=== PATIENT | male | born 1945 | race American Indian/Alaskan Native ===

== ENCOUNTER 2017-11-13 08:18 | Day surgery (SDC) | payer MEDICARE ==
[~2017-11-13 08:18] MED LIST: NACL 0.9% 1000 ML 1,000 ML IV SCH
[2017-11-13] MEDS ORDERED: DIPRIVAN 10 MG/ML IV ONE (10:46)
--- NOTE | 2017-11-13 10:47 | Short Stay Summary ---
Short Stay Documentation Date of service: 11/13/17 - History H&P: obtained from office - Allergies and Medications Current Medications: Allergies No Known Allergies Allergy (Verified 11/13/17 07:39) Home Medications Medication Instructions Recorded Confirmed Last Taken Type Megestrol 40 mg BID 11/13/17 11/13/17 Unknown History Miralax 3350 17 gm DAILY 11/13/17 11/13/17 Unknown History Mirtazapine 30 mg DAILY 11/13/17 11/13/17 Unknown History Omeprazole 40 mg DAILY 11/13/17 11/13/17 Unknown History hydrOXYzine 25 mg DAILY 11/13/17 11/13/17 Unknown History Active Medications Sodium Chloride (Nacl 0.9% 1000 Ml) 1,000 mls @ 50 mls/hr IV DIRECT LOVE Last Admin: 11/13/17 09:05 Dose: 50 mls/hr - Brief post op/procedure progress note Date of procedure: 11/13/17 Findings: see procedure notes Estimated blood loss: none Pathology: none Condition: stable - Disposition Condition at discharge: Good - Discharge Diagnoses (1) GERD (gastroesophageal reflux disease) Status: Acute (2) History of colonic polyps Status: Acute (3) Weight loss of more than 10% body weight Status: Acute Short Stay Discharge Plan Activity: other (no driving for 24 hours) Weight Bearing Status: Full Weight Bearing Diet: regular Follow up with: ELIZ PRYOR MD [Other] - 7 Days
--- NOTE | 2017-11-13 10:48 | Operative Report ---
Operative Report Operative Report: Date of procedure: 11/13/2017 Procedure: Esophagogastroduodenoscopy Preprocedure diagnosis: Chronic GERD. History of weight loss. Post procedure diagnosis: Normal study Endoscopist: Dr. Chowdary Anesthesia: Monitored anesthesia care per anesthesia department Medications: Propofol per anesthesia Estimated blood loss: 0 After careful discussion of the nature and purpose of the procedure as well as details the technique risks benefits and alternatives consent was obtained. The patient was placed in the left lateral decubitus position and medicated per anesthesia. The tip of the Movatu EQ 570 video scope was passed per orum under direct vision into the esophagus and advanced into the stomach and descending duodenum. The descending duodenum the duodenal bulb and pylorus were symmetrical and normal. The scope was withdrawn into the stomach and the stomach then gently insufflated with air. The antrum was normal. The stomach was further insufflated and the scope was then retroflexed and partially withdrawn. The cardia, fundus, and body of the stomach were within normal limits and easily distensible.The scope was then withdrawn in the forward position. The esophagogastric junction was at 40 cm. The esophageal body was normal throughout. The procedure was was well tolerated and the patient was observed in recovery. Impressions: Normal study. Plan: Continue omeprazole. Electronically signed: James Chowdary MD
--- NOTE | 2017-11-13 10:49 | Operative Report ---
Operative Report Operative Report: Date of procedure: 11/13/2017 Preprocedure diagnosis: History of adenomatous colon polyps. Recent significant weight loss. Post procedure diagnosis: Normal study Procedure: Colonoscopy to the cecum Endoscopist: Dr. Chowdary Anesthesia: Monitored anesthesia care per anesthesia department Estimated blood loss: 0 Medications: Monitored anesthesia care. See separate report by anesthesia for details. After careful discussion of the nature and purpose of the procedure as well as details of the technique risks benefits and alternatives the patient gave consent. Please see recent history and physical from the office. The patient was placed in the left lateral decubitus position and medicated per anesthesia. A rectal exam was performed sphincter tone was normal there were no masses palpable. The [employer] 570 scope was passed transanally and advanced under continuous direct vision without difficulty to the cecum. The colon was well prepared. The cecum was normal. The ascending colon was normal and on forward and retroflexed views. The transverse colon, descending colon, and sigmoid colon were normal. The rectum was normal on forward and retroflexed views. The procedure was well-tolerated overall and the patient was observed in recovery. Conclusions: Normal colonoscopy to the cecum. Plan: Repeat colonoscopy in 5 years. Further workup directed by his primary physician to assess for other causes of weight loss. Signed electronically: James Chowdary M.D.
--- NOTE | 2017-11-13 10:50 | Anesthesia Consultation ---
Anesthesia Consult and Med Hx Date of service: 11/13/17 - Airway Anesthetic Teeth Evaluation: Dentures (upper) ROM Head & Neck: Adequate Mental/Hyoid Distance: Adequate Mallampati Class: Class II Intubation Access Assessment: Probably Good - Pulmonary Exam CTA: Yes - Cardiac Exam Cardiac Exam: RRR - Pre-Operative Health Status ASA Pre-Surgery Classification: ASA2 Proposed Anesthetic Plan: MAC - Pre-Anesthesia Comment Pre-Anesthesia Comments: IBS - Gastrointestinal Hx Gastroesophageal Reflux Disease: Yes - Endocrine Hx Liver Disease: Yes (FATTY LIVER)
--- NOTE | 2017-11-13 10:51 | Anesthesia Day of Surgery ---
Anesthesia Day of Surgery - Day of Surgery Patient Examined: Yes Patient H&P Reviewed: Yes Patient is NPO: Yes
[2017-11-13 12:15] VITALS: BP 110/78
== END 2017-11-13 08:19 | disposition home or self-care (01) ==
LOC: GIO 08:18
PROVIDERS: ATTEND Internal Medicine Gastroenterology
DX: K21.9 Gastro-esophageal reflux disease without esophagitis (principal); K59.00 Constipation, unspecified; K76.0 Fatty (change of) liver, not elsewhere classified; R63.4 Abnormal weight loss; F41.9 Anxiety disorder, unspecified; F32.9 Major depressive disorder, single episode, unspecified; K58.9 Irritable bowel syndrome, unspecified
CPT/HCPCS: 43235; 45378; J2704; J7030

== ENCOUNTER 2018-07-12 09:14 | Emergency (ER) | payer MEDICARE ==
--- NOTE | 2018-07-12 10:15 | Emergency Department Report ---
- General Chief complaint: Skin Rash Stated complaint: SHINGLES Time Seen by Provider: 07/12/18 09:36 Source: patient Mode of arrival: Ambulatory Limitations: No Limitations - History of Present Illness Initial comments: 73-year-old male with a past medical history GERD presents to the Hospital complaining of worsening rash. Rash started to lower extremities one month ago. Patient saw his PMD 4 days ago and was prescribed an antibiotic. 3 days ago his rash has spread to his entire body with ulcerations to his groin. Patient denies fever. Rash is pruritic. Patient states he was diagnosed with shingles and placed on antibiotic and medication for itching. He does not know the name. PMD Dr. iona flores We called his pharmacy and patient was prescribed clindamycin and Atarax. - Related Data Home Medications Medication Instructions Recorded Confirmed Last Taken Megestrol 40 mg BID 11/13/17 11/13/17 Unknown Miralax 3350 17 gm DAILY 11/13/17 11/13/17 Unknown Mirtazapine 30 mg DAILY 11/13/17 11/13/17 Unknown Omeprazole 40 mg DAILY 11/13/17 11/13/17 Unknown hydrOXYzine 25 mg DAILY 11/13/17 11/13/17 Unknown Previous Rx's Medication Instructions Recorded Last Taken Type Prednisone [predniSONE 10 mg 10 mg PO .TAPER #1 tab.ds.pk 07/12/18 Unknown Rx (6-Day Pack, 21 Tabs)] Allergies Allergy/AdvReac Type Severity Reaction Status Date / Time No Known Allergies Allergy Verified 07/12/18 09:19 Abscess Boil HPI - HPI Chief Complaint: Skin Rash Stated Complaint: SHINGLES Time Seen by Provider: 07/12/18 09:36 Home Medications: Home Medications Medication Instructions Recorded Confirmed Last Taken Megestrol 40 mg BID 11/13/17 11/13/17 Unknown Miralax 3350 17 gm DAILY 11/13/17 11/13/17 Unknown Mirtazapine 30 mg DAILY 11/13/17 11/13/17 Unknown Omeprazole 40 mg DAILY 11/13/17 11/13/17 Unknown hydrOXYzine 25 mg DAILY 11/13/17 11/13/17 Unknown Previous Rx's Medication Instructions Recorded Last Taken Type Prednisone [predniSONE 10 mg 10 mg PO .TAPER #1 tab.ds.pk 07/12/18 Unknown Rx (6-Day Pack, 21 Tabs)] Allergies/Adverse Reactions: Allergies Allergy/AdvReac Type Severity Reaction Status Date / Time No Known Allergies Allergy Verified 07/12/18 09:19 ED Review of Systems ROS: Stated complaint: SHINGLES Other details as noted in HPI Comment: All other systems reviewed and negative ED Past Medical Hx - Past Medical History Hx GERD: Yes Hx Liver Disease: Yes (FATTY LIVER) - Social History Smoking Status: Never Smoker Substance Use Type: None - Medications Home Medications: Home Medications Medication Instructions Recorded Confirmed Last Taken Type Megestrol 40 mg BID 11/13/17 11/13/17 Unknown History Miralax 3350 17 gm DAILY 11/13/17 11/13/17 Unknown History Mirtazapine 30 mg DAILY 11/13/17 11/13/17 Unknown History Omeprazole 40 mg DAILY 11/13/17 11/13/17 Unknown History hydrOXYzine 25 mg DAILY 11/13/17 11/13/17 Unknown History Prednisone [predniSONE 10 mg 10 mg PO .TAPER #1 tab.ds.pk 07/12/18 Unknown Rx (6-Day Pack, 21 Tabs)] ED Physical Exam - General Limitations: No Limitations - Other Other exam information: General: No limitations, patient is alert in no acute distress Head exam: Atraumatic, normocephalic Eyes exam: Normal appearance ENT: Moist mucous membrane, no oral lesions Neck exam: Normal inspection, full range of motion, no meningismus nontender Respiratory exam: Clear to auscultation bilateral, no wheezes, rales, crackles Cardiovascular: Normal rate and rhythm Abdomen: Soft, nondistended, and nontender, with normal bowel sounds, no rebound, or guarding : Uncircumcised, excoriation to scrotum with mild swelling to scrotal skin and foreskin swelling. No testicular tenderness Extremity: Full range of motion normal inspection no deformity Back: Normal Inspection, full range of motion, no tenderness Neurologic: Alert, oriented x3, cranial nerves intact, no motor or sensory deficit Psychiatric: normal affect, normal mood Skin: Diffuse pruritic erythematous papular rash with excoriation mason secondary to scratching. Rash also involves the scrotum. Confluent erythema to left lateral distal leg with warmth. Rash Spares palms and soles ED Course Vital Signs 07/12/18 07/12/18 09:19 15:49 Temperature 97.7 F 98.1 F Pulse Rate 110 H 86 Respiratory 18 18 Rate Blood Pressure 106/69 Blood Pressure 140/78 [Right] O2 Sat by Pulse 100 Oximetry ED Medical Decision Making - Lab Data Result diagrams: 07/12/18 11:33 07/12/18 11:33 Lab Results 07/12/18 07/12/18 07/12/18 Range/Units 11:33 11:33 11:33 WBC 2.6 L (4.5-11.0) K/mm3 RBC 3.77 (3.65-5.03) M/mm3 Hgb 11.2 L (11.8-15.2) gm/dl Hct 34.0 L (35.5-45.6) % MCV 90 (84-94) fl MCH 30 (28-32) pg MCHC 33 (32-34) % RDW 16.6 H (13.2-15.2) % Plt Count 163 (140-440) K/mm3 Lymph % (Auto) 25.4 (13.4-35.0) % Edmunds % (Auto) 4.9 (0.0-7.3) % Eos % (Auto) 9.8 H (0.0-4.3) % Baso % (Auto) 0.1 (0.0-1.8) % Lymph # 0.7 L (1.2-5.4) K/mm3 Edmunds # 0.1 (0.0-0.8) K/mm3 Eos # 0.3 (0.0-0.4) K/mm3 Baso # 0.0 (0.0-0.1) K/mm3 Seg Neutrophils % 59.8 (40.0-70.0) % Seg Neutrophils # 1.6 L (1.8-7.7) K/mm3 Sodium 139 (137-145) mmol/L Potassium 4.9 (3.6-5.0) mmol/L Chloride 100.9 (98-107) mmol/L Carbon Dioxide 29 (22-30) mmol/L Anion Gap 14 mmol/L BUN 29 H (9-20) mg/dL Creatinine 1.8 H (0.8-1.5) mg/dL Estimated GFR 45 ml/min BUN/Creatinine Ratio 16 % Glucose 104 H (75-100) mg/dL Calcium 8.6 (8.4-10.2) mg/dL Total Bilirubin 0.30 (0.1-1.2) mg/dL AST 26 (5-40) units/L ALT 17 (7-56) units/L Alkaline Phosphatase 93 (35-129) units/L Total Protein 7.1 (6.3-8.2) g/dL Albumin 4.1 (3.9-5) g/dL Albumin/Globulin Ratio 1.4 % Urine Color (Yellow) Urine Turbidity (Clear) Urine pH (5.0-7.0) Ur Specific [place] (1.003-1.030) Urine Protein (Negative) mg/dL Urine Glucose (UA) (Negative) mg/dL Urine Ketones (Negative) mg/dL Urine Blood (Negative) Urine Nitrite (Negative) Urine Bilirubin (Negative) Urine Urobilinogen (<2.0) mg/dL Ur Leukocyte Esterase (Negative) Urine WBC (Auto) (0.0-6.0) /HPF Urine RBC (Auto) (0.0-6.0) /HPF Hyaline Casts /LPF Urine Mucus /HPF RPR (Nonreactive) Hepatitis A IgM Ab Non-reactive (NonReactive) Hep Bs Antigen Non-reactive (Negative) Hep B Core IgM Ab Non-reactive (NonReactive) Hepatitis C Antibody Non-reactive (NonReactive) 07/12/18 07/12/18 Range/Units 11:33 14:57 WBC (4.5-11.0) K/mm3 RBC (3.65-5.03) M/mm3 Hgb (11.8-15.2) gm/dl Hct (35.5-45.6) % MCV (84-94) fl MCH (28-32) pg MCHC (32-34) % RDW (13.2-15.2) % Plt Count (140-440) K/mm3 Lymph % (Auto) (13.4-35.0) % Edmunds % (Auto) (0.0-7.3) % Eos % (Auto) (0.0-4.3) % Baso % (Auto) (0.0-1.8) % Lymph # (1.2-5.4) K/mm3 Edmunds # (0.0-0.8) K/mm3 Eos # (0.0-0.4) K/mm3 Baso # (0.0-0.1) K/mm3 Seg Neutrophils % (40.0-70.0) % Seg Neutrophils # (1.8-7.7) K/mm3 Sodium (137-145) mmol/L Potassium (3.6-5.0) mmol/L Chloride (98-107) mmol/L Carbon Dioxide (22-30) mmol/L Anion Gap mmol/L BUN (9-20) mg/dL Creatinine (0.8-1.5) mg/dL Estimated GFR ml/min BUN/Creatinine Ratio % Glucose (75-100) mg/dL Calcium (8.4-10.2) mg/dL Total Bilirubin (0.1-1.2) mg/dL AST (5-40) units/L ALT (7-56) units/L Alkaline Phosphatase (35-129) units/L Total Protein (6.3-8.2) g/dL Albumin (3.9-5) g/dL Albumin/Globulin Ratio % Urine Color Yellow (Yellow) Urine Turbidity Clear (Clear) Urine pH 5.0 (5.0-7.0) Ur Specific [place] 1.013 (1.003-1.030) Urine Protein <15 mg/dl (Negative) mg/dL Urine Glucose (UA) Neg (Negative) mg/dL Urine Ketones Neg (Negative) mg/dL Urine Blood Neg (Negative) Urine Nitrite Neg (Negative) Urine Bilirubin Neg (Negative) Urine Urobilinogen < 2.0 (<2.0) mg/dL Ur Leukocyte Esterase Neg (Negative) Urine WBC (Auto) < 1.0 (0.0-6.0) /HPF Urine RBC (Auto) 1.0 (0.0-6.0) /HPF Hyaline Casts 3 /LPF Urine Mucus Few /HPF RPR Nonreactive (Nonreactive) Hepatitis A IgM Ab (NonReactive) Hep Bs Antigen (Negative) Hep B Core IgM Ab (NonReactive) Hepatitis C Antibody (NonReactive) - Medical Decision Making Labs reveal renal insufficiency with a prerenal ratio. Patient given a 1 L normal saline. Urine does not show any proteins or blood to suggest nephritic or nephrotic syndrome. Patient has a leukopenia without significant leukocytosis. Other labs including RPR, hepatitis, and LFTs are unremarkable. Patient currently on Atarax and clindamycin. Prednisone will be added to his regimen. Patient will be provided outpatient follow-up with dermatology and renal - Differential Diagnosis dermatitis, allergic reaction, viral exanthem, syphilis, Critical Care Time: No Critical care attestation.: If time is entered above; I have spent that time in minutes in the direct care of this critically ill patient, excluding procedure time. ED Disposition Clinical Impression: Rash and nonspecific skin eruption, Renal insufficiency Disposition: TO HOME OR SELFCARE Is pt being admited?: No Does the pt Need Aspirin: No Condition: Stable Instructions: Acute Rash (ED), Impaired Kidney Function (ED) Additional Instructions: Continue current medications. Also take the prescribe steroids. It is very important that you follow-up with a bell maker and a kidney doctor for further management and treatment. Take the laboratory results provided to you doctors for follow-up. Prescriptions: Prednisone [predniSONE 10 mg (6-Day Pack, 21 Tabs)] 10 mg PO .TAPER #1 tab.ds.pk Referrals: IONA FLORES MD [Primary Care Provider] - 3-5 Days tova piedra md [Other] - 3-5 Days (bell maker) Gui Dowd [Other] - 3-5 Days (Global Marketing Intern ) LULU FOURNIER MD [Staff Physician] - 3-5 Days (kidney doctor ) Time of Disposition: 15:47
[2018-07-12] MEDS ORDERED: BENADRYL PO ONE (10:38)
[2018-07-12] MEDS ORDERED: DELTASONE PO ONE (11:03)
[2018-07-12 11:49] LABS: Basophils % (Auto) 0.1 % (0.0-1.8); Eosinophils # (Auto) 0.3 K/mm3 (0.0-0.4); Eosinophils % (Auto) 9.8 % (0.0-4.3); Hemoglobin 11.2 gm/dl (11.8-15.2); Lymphocytes # (Auto) 0.7 K/mm3 (1.2-5.4); Lymphocytes % (Auto) 25.4 % (13.4-35.0); Mean Corpuscular HGB Conc 33 % (32-34); Mean Corpuscular Volume 90 fl (84-94); Monocytes # (Auto) 0.1 K/mm3 (0.0-0.8); Monocytes % (Auto) 4.9 % (0.0-7.3); Platelet Count 163 K/mm3 (140-440); Red Blood Count 3.77 M/mm3 (3.65-5.03); Red Cell Distribution Width 16.6 % (13.2-15.2)
[2018-07-12 12:05] LABS: Albumin 4.1 g/dL (3.9-5); Calcium 8.6 mg/dL (8.4-10.2)
[2018-07-12 12:29] LABS: Hepatitis B Surface Antigen Non-Reactive (Negative); Hepatitis C Virus Antibody Non-Reactive (NonReactive)
[2018-07-12] MEDS ORDERED: NACL 0.9% 1000 ML 1,000 ML IV ONE (13:07)
[2018-07-12 15:20] LABS: Bilirubin,Urine NEG (Negative); Blood,Urine NEG (Negative); Color,Urine Yellow (Yellow); Hyaline Casts,Urine 3 /LPF; Mucus,Urine FEW /HPF; Protein,Urine <15 mg/dL mg/dL (Negative); Urobilinogen,Urine < 2.0 mg/dL (<2.0); WBC,Urine < 1.0 /HPF (0.0-6.0)
[2018-07-13 13:47] VITALS: BP 140/78
== END 2018-07-12 16:00 | disposition home or self-care (01) ==
LOC: ED 09:14
DX: R21 Rash and other nonspecific skin eruption (principal); N28.9 Disorder of kidney and ureter, unspecified; K21.9 Gastro-esophageal reflux disease without esophagitis
CPT/HCPCS: 36415; 80053; 80074; 81001; 85025; 86592; 99283; J7030; J7512

== ENCOUNTER 2018-12-30 10:05 | Emergency (ER) | payer MEDICARE ==
[2018-12-30] MEDS ORDERED: PEPCID IV ONE (11:45)
[2018-12-30] MEDS ORDERED: NACL 0.9% 1000 ML 1,000 ML IV ONE ×2 (11:45→12:50)
[2018-12-30] MEDS ORDERED: ZOFRAN IV ONE (11:45)
[2018-12-30 12:11] LABS: Basophils % (Auto) 0.5 % (0.0-1.8); Eosinophils % (Auto) 1.2 % (0.0-4.3); Hematocrit 34.9 % (35.5-45.6); Hemoglobin 11.5 gm/dl (11.8-15.2); Lymphocytes # (Auto) 0.9 K/mm3 (1.2-5.4); Lymphocytes % (Auto) 29.3 % (13.4-35.0); Mean Corpuscular HGB Conc 33 % (32-34); Mean Corpuscular Volume 96 fl (84-94); Monocytes # (Auto) 0.3 K/mm3 (0.0-0.8); Monocytes % (Auto) 8.5 % (0.0-7.3); Platelet Count 173 K/mm3 (140-440); Red Blood Count 3.62 M/mm3 (3.65-5.03); Red Cell Distribution Width 15.3 % (13.2-15.2)
[2018-12-30 12:24] LABS: Albumin 4.7 g/dL (3.9-5); Calcium 9.4 mg/dL (8.4-10.2)
[2018-12-30 12:31] LABS: Free T4 (Free Thyroxine) 1.3 ng/dL (0.76-1.46)
--- NOTE | 2018-12-30 12:46 | XRay Report ---
CHEST 2 VIEWS INDICATION / CLINICAL INFORMATION: Nausea and vomiting, weakness. COMPARISON: None available. FINDINGS: SUPPORT DEVICES: None. HEART / MEDIASTINUM: No significant abnormality. LUNGS / PLEURA: No significant pulmonary or pleural abnormality. No pneumothorax. ADDITIONAL FINDINGS: No significant additional findings. IMPRESSION: 1. No acute findings. Signer Name: Jaime Chu MD Signed: 12/30/2018 12:42 PM Workstation Name: [id number]
[2018-12-30 12:47] LABS: Bilirubin,Urine NEG (Negative); Blood,Urine NEG (Negative); Color,Urine Yellow (Yellow); Mucus,Urine FEW /HPF; Protein,Urine <15 mg/dL mg/dL (Negative); Urobilinogen,Urine < 2.0 mg/dL (<2.0)
--- NOTE | 2018-12-30 13:36 | Cat Scan Report ---
CT abdomen pelvis wo con INDICATION / CLINICAL INFORMATION: Nausea, vomiting and po intolerance x 3 weeks with weight loss. TECHNIQUE: All CT scans at this location are performed using CT dose reduction for ALARA by means of automated e xposure control. COMPARISON: None available. FINDINGS: ABDOMEN: The liver, spleen, gallbladder, bile ducts, pancreas, adrenal glands, kidneys and bowel demo nstrate no significant abnormality. No adenopathy is seen. The lung bases are clear. PELVIS: The prostate gland is mildly enlarged. The distal ureters and urinary bladder are normal. A n ormal appendix is present and there is no evidence of diverticulitis. No abnormal mass or fluid colle ction is seen. I do not identify a hernia. There is moderately advanced mid to lower lumbar spondylos is. There are [id number] degenerative changes involving the right hip. IMPRESSION: No acute abnormality is identified. Signer Name: Rory Aguila MD Signed: 12/30/2018 1:32 PM Workstation Name: [id number]
--- NOTE | 2018-12-30 14:16 | Emergency Department Report ---
ED N/V/D HPI - General Chief complaint: Weakness Stated complaint: WEAKNESS Time Seen by Provider: 12/30/18 11:38 Source: patient Mode of arrival: Ambulatory Limitations: No Limitations - History of Present Illness Initial comments: 73-year-old male with past medical history of GERD and chronic renal insufficiency (as per previous creatinine on record) presents to the hospital with complaints of nausea, vomiting, by mouth intolerance 3 weeks. Patient states after anything he eats a drink he vomits within 5 minutes. He denies any abdominal pain. He saw his primary care doctor last week and was prescribed an antibiotic, medication to settle his stomach, and Zofran ODT. He does have some vomiting of antibiotics. Despite taking these meds he does not feel any better. He reports a 10-12 pound weight loss in the past 2 weeks and he hasn't had a bowel movement in 3 weeks. Patient denies fever, dysuria, or previous abdominal surgeries. Primary care Dr. Beka Hughes - Related Data Home Medications Medication Instructions Recorded Confirmed Last Taken Ciprofloxacin HCl [Ciprofloxacin 500 mg PO Q12HR 12/30/18 12/30/18 Unknown TAB] Ondansetron [Zofran Odt] 4 mg PO Q8HR 12/30/18 12/30/18 Unknown Previous Rx's Medication Instructions Recorded Last Taken Type Promethazine [Phenergan] 25 mg OR Q6HR PRN #20 supp.rect 12/30/18 Unknown Rx Allergies Allergy/AdvReac Type Severity Reaction Status Date / Time No Known Allergies Allergy Verified 07/12/18 09:19 ED Review of Systems ROS: Stated complaint: WEAKNESS Other details as noted in HPI Comment: All other systems reviewed and negative ED Past Medical Hx - Past Medical History Hx GERD: Yes Hx Liver Disease: Yes (FATTY LIVER) - Social History Smoking Status: Never Smoker Substance Use Type: None - Medications Home Medications: Home Medications Medication Instructions Recorded Confirmed Last Taken Type Ciprofloxacin HCl [Ciprofloxacin 500 mg PO Q12HR 12/30/18 12/30/18 Unknown History TAB] Ondansetron [Zofran Odt] 4 mg PO Q8HR 12/30/18 12/30/18 Unknown History Promethazine [Phenergan] 25 mg OR Q6HR PRN #20 supp.rect 12/30/18 Unknown Rx ED Physical Exam - General Limitations: No Limitations - Other Other exam information: General: No limitations, patient is alert in no acute distress Head exam: Atraumatic, normocephalic Eyes exam: Normal appearance, pupils equal reactive to light, extraocular movements intact ENT: Moist mucous membrane, normal oropharynx Neck exam: Normal inspection, full range of motion, no meningismus nontender Respiratory exam: Clear to auscultation bilateral, no wheezes, rales, crackles Cardiovascular: Normal rate and rhythm, normal heart sounds Abdomen: Soft, nondistended, and nontender, with normal bowel sounds, no rebound, or guarding Extremity: Full range of motion normal inspection no deformity Back: Normal Inspection, full range of motion, no tenderness Neurologic: Alert, oriented x3, cranial nerves intact, no motor or sensory d eficit Psychiatric: normal affect, normal mood Skin: Warm, dry, intact ED Course Vital Signs 12/30/18 12/30/18 12/30/18 10:17 11:58 15:36 Temperature 97.9 F Pulse Rate 89 68 Respiratory 18 16 16 Rate Blood Pressure 118/85 137/81 [Left] O2 Sat by Pulse 100 100 Oximetry - Consultations Consultation #1: 12/30/18 14:[address] Beka Hughes's office and spoke to his nurse practitioner. I informed him that ED workup is unremarkable. Patient will be discharged to follow up with their office, GI, and nephrology. ED Medical Decision Making - Lab Data Result diagrams: 12/30/18 11:47 12/30/18 11:47 Lab Results 12/30/18 12/30/18 12/30/18 Range/Units 11:47 11:47 11:47 WBC 3.0 L (4.5-11.0) K/mm3 RBC 3.62 L (3.65-5.03) M/mm3 Hgb 11.5 L (11.8-15.2) gm/dl Hct 34.9 L (35.5-45.6) % MCV 96 H (84-94) fl MCH 32 (28-32) pg MCHC 33 (32-34) % RDW 15.3 H (13.2-15.2) % Plt Count 173 (140-440) K/mm3 Lymph % (Auto) 29.3 (13.4-35.0) % Gove % (Auto) 8.5 H (0.0-7.3) % Eos % (Auto) 1.2 (0.0-4.3) % Baso % (Auto) 0.5 (0.0-1.8) % Lymph # 0.9 L (1.2-5.4) K/mm3 Gove # 0.3 (0.0-0.8) K/mm3 Eos # 0.0 (0.0-0.4) K/mm3 Baso # 0.0 (0.0-0.1) K/mm3 Seg Neutrophils % 60.5 (40.0-70.0) % Seg Neutrophils # 1.8 (1.8-7.7) K/mm3 Sodium 141 (137-145) mmol/L Potassium 4.3 (3.6-5.0) mmol/L Chloride 104.1 (98-107) mmol/L Carbon Dioxide 25 (22-30) mmol/L Anion Gap 16 mmol/L BUN 26 H (9-20) mg/dL Creatinine 2.0 H (0.8-1.5) mg/dL Estimated GFR 40 ml/min BUN/Creatinine Ratio 13 % Glucose 111 H (75-100) mg/dL Calcium 9.4 (8.4-10.2) mg/dL Magnesium 2.10 (1.7-2.3) mg/dL Total Bilirubin 0.50 (0.1-1.2) mg/dL AST 19 (5-40) units/L ALT 15 (7-56) units/L Alkaline Phosphatase 42 (35-129) units/L Total Protein 8.0 (6.3-8.2) g/dL Albumin 4.7 (3.9-5) g/dL Albumin/Globulin Ratio 1.4 % Lipase 414 H (13-60) units/L TSH 3.240 (0.270-4.200) mlU/mL Free T4 1.30 (0.76-1.46) ng/dL Urine Color (Yellow) Urine Turbidity (Clear) Urine pH (5.0-7.0) Ur Specific [place] (1.003-1.030) Urine Protein (Negative) mg/dL Urine Glucose (UA) (Negative) mg/dL Urine Ketones (Negative) mg/dL Urine Blood (Negative) Urine Nitrite (Negative) Urine Bilirubin (Negative) Urine Urobilinogen (<2.0) mg/dL Ur Leukocyte Esterase (Negative) Urine WBC (Auto) (0.0-6.0) /HPF Urine RBC (Auto) (0.0-6.0) /HPF Urine Mucus /HPF 12/30/18 Range/Units Unknown WBC (4.5-11.0) K/mm3 RBC (3.65-5.03) M/mm3 Hgb (11.8-15.2) gm/dl Hct (35.5-45.6) % MCV (84-94) fl MCH (28-32) pg MCHC (32-34) % RDW (13.2-15.2) % Plt Count (140-440) K/mm3 Lymph % (Auto) (13.4-35.0) % Gove % (Auto) (0.0-7.3) % Eos % (Auto) (0.0-4.3) % Baso % (Auto) (0.0-1.8) % Lymph # (1.2-5.4) K/mm3 Gove # (0.0-0.8) K/mm3 Eos # (0.0-0.4) K/mm3 Baso # (0.0-0.1) K/mm3 Seg Neutrophils % (40.0-70.0) % Seg Neutrophils # (1.8-7.7) K/mm3 Sodium (137-145) mmol/L Potassium (3.6-5.0) mmol/L Chloride (98-107) mmol/L Carbon Dioxide (22-30) mmol/L Anion Gap mmol/L BUN (9-20) mg/dL Creatinine (0.8-1.5) mg/dL Estimated GFR ml/min BUN/Creatinine Ratio % Glucose (75-100) mg/dL Calcium (8.4-10.2) mg/dL Magnesium (1.7-2.3) mg/dL Total Bilirubin (0.1-1.2) mg/dL AST (5-40) units/L ALT (7-56) units/L Alkaline Phosphatase (35-129) units/L Total Protein (6.3-8.2) g/dL Albumin (3.9-5) g/dL Albumin/Globulin Ratio % Lipase (13-60) units/L TSH (0.270-4.200) mlU/mL Free T4 (0.76-1.46) ng/dL Urine Color Yellow (Yellow) Urine Turbidity Clear (Clear) Urine pH 5.0 (5.0-7.0) Ur Specific [place] 1.019 (1.003-1.030) Urine Protein <15 mg/dl (Negative) mg/dL Urine Glucose (UA) Neg (Negative) mg/dL Urine Ketones Neg (Negative) mg/dL Urine Blood Neg (Negative) Urine Nitrite Neg (Negative) Urine Bilirubin Neg (Negative) Urine Urobilinogen < 2.0 (<2.0) mg/dL Ur Leukocyte Esterase Neg (Negative) Urine WBC (Auto) 2.0 (0.0-6.0) /HPF Urine RBC (Auto) 1.0 (0.0-6.0) /HPF Urine Mucus Few /HPF - EKG Data -: EKG Interpreted by Id EKG shows normal: sinus rhythm, axis (qrs 13), QRS complexes (qrsd 85), ST-T waves (no stemi) Rate: normal (79) - Radiology Data Radiology results: report reviewed CHEST 2 VIEWS INDICATION / CLINICAL INFORMATION: Nausea and vomiting, weakness. COMPARISON: None available. FINDINGS: SUPPORT DEVICES: None. HEART / MEDIASTINUM: No significant abnormality. LUNGS / PLEURA: No significant pulmonary or pleural abnormality. No pneumothorax. ADDITIONAL FINDINGS: No significant additional findings. IMPRESSION: 1. No acute findings. CT abdomen pelvis wo con INDICATION / CLINICAL INFORMATION: Nausea, vomiting and po intolerance x 3 weeks with weight loss. TECHNIQUE: All CT scans at this location are performed using CT dose reduction for ALARA by means of automated exposure control. COMPARISON: None available. FINDINGS: ABDOMEN: The liver, spleen, gallbladder, bile ducts, pancreas, adrenal glands, kidneys and bowel demonstrate no significant abnormality. No adenopathy is seen. The lung bases are clear. PELVIS: The prostate gland is mildly enlarged. The distal ureters and urinary bladder are normal. A normal appendix is present and there is no evidence of diverticulitis. No abnormal mass or fluid collection is seen. I do not identify a hernia. There is moderately advanced mid to lower lumbar spondylosis. There are [id number] degenerative changes involving the right hip. IMPRESSION: No acute abnormality is identified. - Medical Decision Making Patient states he has not had anything to eat or drink for 3 weeks as well as no bowel movement. Labs do not reveal significant dehydration or significant change in renal function to support no by mouth intake for 3 weeks. Patient has had mild lipase elevation but does not have epigastric tenderness/pain nor does he have CT evidence of pancreatitis. Patient states he has not had a bowel movement in [address] does not reveal any signs of obstruction and no significant fecal retention reported or CT report. ED workup discussed with nurse practitioner for Beka Hughes's office. Patient will be informed to continue his current prescribed medication. Follow with PMD, GI, and nephrology (for chronic renal insufficiency) will be suggested. Copy of labs and imaging results will be provided to patient to take to his physicians for follow-up. pt tx with zofran, Pepcid, and 2 L NS in ed - Differential Diagnosis cancer, obstruction, thyroid disease, GI abnormality, dehydration Critical Care Time: No Critical care attestation.: If time is entered above; I have spent that time in minutes in the direct care of this critically ill patient, excluding procedure time. ED Disposition Clinical Impression: Weight loss, Nausea and vomiting Disposition: TO HOME OR SELFCARE Is pt being admited?: No Does the pt Need Aspirin: No Condition: Stable Instructions: Acute Nausea and Vomiting (ED) Additional Instructions: Continue your current medication. Take the medication as prescribed. Follow up with your doctor or the clinic/doctor provided. Return if symptoms worsen as indicated by your discharge instructions Prescriptions: Promethazine [Phenergan] 25 mg OR Q6HR PRN #20 supp.rect PRN Reason: Nausea And Vomiting Referrals: [facility] [Provider Group] - 3-5 Days (GI) RHINA PIMENTEL MD [Staff Physician] - 3-5 Days (Nephrology) BEKA HUGHES MD [Staff Physician] - 3-5 Days (Primary care doctor ) Time of Disposition: 15:45
[2018-12-30 15:37] VITALS: BP 137/81
== END 2018-12-30 16:05 | disposition home or self-care (01) ==
LOC: ED 10:05
DX: R11.2 Nausea with vomiting, unspecified (principal); R63.4 Abnormal weight loss; K21.9 Gastro-esophageal reflux disease without esophagitis; K76.0 Fatty (change of) liver, not elsewhere classified; Z79.899 Other long term (current) drug therapy; Z68.20 Body mass index [BMI] 20.0-20.9, adult
CPT/HCPCS: 36415; 71046; 74176; 80053; 81001; 83690; 83735; 84439; 84443; 85025; 93005; 93010; 96361; 96374; 96375; 99284; J2405; J7030